=== PATIENT | female | born 1955 | race Caucasian/White ===

== ENCOUNTER → 2017-06-20 | Outpatient (CLI) | payer BC ==
--- NOTE | 2017-06-20 12:49 | BD ---
EXAMINATION TYPE: MG DEXA axial skeleton. DATE OF EXAM: 06/20/2017 COMPARISON: NONE CLINICAL HISTORY: N95.5 POSTMENOPAUSAL Height: 63 Weight: 189.2 FRAX RISK QUESTIONS: Alcohol (3 or more units per day): no Family History (Parent hip fracture): no Glucocorticoids (More than 3mos): no (Ex: prednisone, prednisolone, methylprednisolone, dexamethasone, and hydrocortisone). History of Fracture in Adulthood: no Secondary Osteoporosis: 1. Type 1 Diabetes: no 2. Hyperthyroidism: no 3. Menopause before 45: no 4. Malnutrition: no 5. Chronic liver disease: no Rheumatoid Arthritis: no Current Tobacco Use: no RISK FACTORS HISTORY OF: Hip Fracture (Right/Left): no Spine Fracture: no History of Wrist Fracture: yes right Surgery to Spine/Hip(right/left)/Wrist (right/left): no Family History of Osteoporosis: yes Active: yes Diet low in dairy products/other sources of calcium: no Postmenopausal woman: around age 51 Lost more than 2 inches in height since high school: no Frequent falls: no Poor Health: no Hyperparathyroidism: no Adrenal Insufficiency: no MEDICATIONS: asthma meds, singulair, vitamins, blood pressure meds Prednisone or other steroids: How Long: Thyroid Medications: synthroid How Lon years Osteoporosis Medications: evista How Lon years Additional Medications: Additional History: EXAM MEASUREMENTS: Bone mineral densitometry was performed using the [employer] System. Bone mineral density as measured about the Lumbar spine is: ----- L1-L4(G/cm2): 0.794 T Score Values are as follows: ----- L2: -4.2 ----- L3: -3.4 ----- L4: -2.5 ----- L1-L4: -3.2 Bone mineral density has: decreased -2.9 % since study of: 09.24.2013 Bone mineral density about the R hip (g/cm2): 0.719 Bone mineral density about the L hip (g/cm2): 0.733 T Score values are as follows: -----R Neck: -2.3 -----L Neck: -2.2 -----R Total: -2.0 -----L Total: -2.0 Bone mineral density has: decreased -4.3 % since study of: 09.24.2013 IMPRESSION: 1. Osteoporosis about the lumbar spine. 2. Osteopenia about the bilateral femora. NOTE: T-SCORE=SD OF THE YOUNG ADULT MEAN.
--- NOTE | 2017-06-22 07:16 | MM ---
Reason for exam: screening (asymptomatic). Last mammogram was performed 2 years and 5 months ago. History: Patient is postmenopausal. Physical Findings: A clinical breast exam by your physician is recommended on an annual basis and results should be correlated with mammographic findings. MG Screening Mammo w CAD Bilateral CC and MLO view(s) were taken. Prior study comparison: January 20, 2015, bilateral MG screening mammo w CAD. September 24, 2013, bilateral digital screening mammo w/CAD. August 21, 2012, bilateral digital screening mammo w/CAD. There are scattered fibroglandular densities. No suspicious abnormality. No significant changes when compared with prior studies. ASSESSMENT: Negative, BI-RAD 1 RECOMMENDATION: Routine screening mammogram of both breasts in 1 year.
== END | disposition home or self-care (01) ==
LOC: RADMAMWWP 11:45
PROVIDERS: ATTEND Family Medicine
DX: Z12.31 Encounter for screening mammogram for malignant neoplasm of breast (principal); M81.0 Age-related osteoporosis without current pathological fracture; M85.852 Other specified disorders of bone density and structure, left thigh; M85.851 Other specified disorders of bone density and structure, right thigh
CPT/HCPCS: 77067; 77080

== ENCOUNTER → 2019-11-20 | Outpatient (CLI) | payer BC | END | disposition home or self-care (01) | LOC: CPPFTMAIN 08:53 | PROVIDERS: ATTEND Internal Medicine Critical Care Medicine | DX: J45.909 Unspecified asthma, uncomplicated (principal); R94.2 Abnormal results of pulmonary function studies | CPT/HCPCS: 94060; 94726; 94729 ==

== ENCOUNTER → 2020-05-21 | Outpatient (CLI) | payer BC ==
--- NOTE | 2020-05-26 09:03 | BD ---
EXAMINATION TYPE: Axial Bone Density DATE OF EXAM: 05/21/2020 COMPARISON: DEXA June 20, 2017 CLINICAL HISTORY: Postmenopausal female. Height: 5 FT 3 IN Weight: 179 FRAX RISK QUESTIONS: Alcohol (3 or more units per day): NO Family History (Parent hip fracture): NO Glucocorticoids (More than 3mos): NO (Ex: prednisone, prednisolone, methylprednisolone, dexamethasone, and hydrocortisone). History of Fracture in Adulthood: NO Secondary Osteoporosis: 1. Type 1 Diabetes: NO 2. Hyperthyroidism: NO 3. Menopause before 45: NO 4. Malnutrition: NO 5. Chronic liver disease: NO Rheumatoid Arthritis: NO Current Tobacco Use: NO RISK FACTORS HISTORY OF: Family History of Osteoporosis: YES Active: YES Diet low in dairy products/other sources of calcium: NO Postmenopausal woman: AROUND AGE 51 Take estrogen and/or progesterone medications: NONE Lost more than 2 inches in height since high school: NO MEDICATIONS: Thyroid Medications: YES Which medication: L THYROXINE How Long: APPROX, 31 YEARS Additional Medications: SINGULAIR,INHALER, L THYROXINE, TRIAMTERENE, VIT D3, SULERA, PRO AIR NEED ED Additional History: EXAM MEASUREMENTS: Bone mineral densitometry was performed using the [employer] System. Bone mineral density as measured about the Lumbar spine is: ----- L1-L4(G/cm2): 0.832 T Score Values are as follows: ----- L2: -3.2 ----- L3: -3.5 ----- L4: -2.8 ----- L1-L4: -2.9 Bone mineral density has: INCREASED 1.5 % since study of: 2017 Bone mineral density about the R hip (g/cm2): 0.683 Bone mineral density about the L hip (g/cm2): 0.708 T Score values are as follows: -----R Neck: -2.6 -----L Neck: -2.4 -----R Total: -2.1 -----L Total: -2.1 Bone mineral density has: DECREASED -1.8 % since study of: 2018 IMPRESSION: Osteoporosis (T Score less than -2.5) remains present. There remains increased fracture risk and therapy is usually indicated based on age. Re-Screen 1-2 years. NOTE: T-SCORE=SD OF THE YOUNG ADULT MEAN.
--- NOTE | 2020-05-26 09:37 | MM ---
Reason for exam: screening (asymptomatic). Last mammogram was performed 2 years and 11 months ago. History: Patient is postmenopausal. Physical Findings: A clinical breast exam by your physician is recommended on an annual basis and results should be correlated with mammographic findings. MG Screening Mammo w CAD Bilateral CC and MLO view(s) were taken. Prior study comparison: June 20, 2017, bilateral MG screening mammo w CAD. January 20, 2015, bilateral MG screening mammo w CAD. There are scattered fibroglandular densities. Intramammary lymph nodes redemonstrated right posterior upper outer quadrant. No significant changes when compared with prior studies. ASSESSMENT: Negative, BI-RAD 1 RECOMMENDATION: Routine screening mammogram of both breasts in 1 year.
== END | disposition home or self-care (01) ==
LOC: RADMAMWWP 14:38
PROVIDERS: ATTEND Family Medicine
DX: Z12.31 Encounter for screening mammogram for malignant neoplasm of breast (principal); M81.0 Age-related osteoporosis without current pathological fracture
CPT/HCPCS: 77067; 77080

== ENCOUNTER → 2022-03-29 | Outpatient (CLI) | payer OTHER | END | disposition home or self-care (01) | LOC: LABWHC1 13:48 | PROVIDERS: ATTEND Family Medicine | DX: Z00.00 Encounter for general adult medical examination without abnormal findings (principal) | CPT/HCPCS: 93005 ==

== ENCOUNTER 2023-04-22 08:52 | Emergency (ER) | payer MEDICARE ==
[2023-04-22] MEDS ORDERED: KETOROLAC 15 MG/ML 1 ML VIAL IVP STA (09:08)
[2023-04-22] MEDS ORDERED: LIDOCAINE 5% PATCH TOPICAL ONE (09:08)
[2023-04-22] MEDS ORDERED: SODIUM CHLORIDE 0.9% 1,000 ML IV STA (09:09)
--- NOTE | 2023-04-22 09:22 | ED ---
Back Pain HPI - General Chief Complaint: Back Pain/Injury Stated Complaint: Back Pain Time Seen by Provider: 04/22/23 09:02 Source: patient, RN notes reviewed Mode of arrival: ambulatory Limitations: no limitations - History of Present Illness Initial Comments: This is a 67-year-old female who presents to the emergency department for back pain. States that she has had right mid back pain for the last week. This occasionally wraps around into the right mid to upper abdomen. Denies any injuries. States that she did have similar issues over this summer, however the cause was never determined. She has been having some constipation. Denies any fevers, chills, nausea, vomiting, or urinary changes. She is taking [id number] Advil with some relief in symptoms. Denies any loss of bowel/bladder control or saddle anesthesia. MD Complaint: back pain Onset/Timin -: week(s) - Related Data Previous Rx's Medication Instructions Recorded HYDROcodone/APAP 5-325MG [Polk 1 tab PO Q6HR PRN 3 Days #12 tab 04/22/23 5-325] Ketorolac [Toradol] 10 mg PO Q6HR PRN #15 tab 04/22/23 Lidocaine 5% Patch [Lidoderm 5% 1 patch TOPICAL DAILY PRN #30 patch 04/22/23 Patch] methocarbamoL [Robaxin-750] 1,500 mg PO TID PRN #30 tab 04/22/23 Allergies Allergy/AdvReac Type Severity Reaction Status Date / Time Sulfa (Sulfonamide Allergy Rash/Hives Verified 04/22/23 09:00 Antibiotics) Review of Systems ROS Statement: Those systems with pertinent positive or pertinent negative responses have been documented in the HPI. ROS Other: All systems not noted in ROS Statement are negative. Past Medical History Past Medical History: Asthma, Hypertension Additional Past Medical History / Comment(s): Diverticulosis, History of Any Multi-Drug Resistant Organisms: None Reported Past Surgical History: Tubal Ligation Past Psychological History: Unable to Obtain Smoking Status: Former smoker Past Alcohol Use History: None Reported Past Drug Use History: None Reported General Exam Limitations: no limitations General appearance: alert, in no apparent distress Head exam: Present: atraumatic, normocephalic, normal inspection Respiratory exam: Present: normal lung sounds bilaterally. Absent: respiratory distress, wheezes, rales, rhonchi, stridor Cardiovascular Exam: Present: regular rate, normal rhythm, normal heart sounds. Absent: systolic murmur, diastolic murmur, rubs, gallop, clicks GI/Abdominal exam: Present: soft, tenderness (Right mid abdomen), normal bowel sounds. Absent: distended Back exam: Absent: CVA tenderness (R), CVA tenderness (L) Neurological exam: Present: alert, oriented X3, CN II-XII intact Psychiatric exam: Present: normal affect, normal mood Skin exam: Present: warm, dry, intact, normal color. Absent: rash Course Vital Signs 04/22/23 04/22/23 04/22/23 08:56 10:36 12:01 Temperature 97.5 F L 97.9 F 98.7 F Pulse Rate 73 72 65 Respiratory 18 20 18 Rate Blood Pressure 193/88 169/91 160/90 O2 Sat by Pulse 97 100 100 Oximetry Medical Decision Making - Medical Decision Making This is a 67-year-old female who presents to the emergency department for back pain. Was pt. sent in by a medical professional or institution? @ -No Did you speak to anyone other than the patient for history? @ -No Did you review nursing and triage notes? @ -Yes, and I agree, it is accurate with regards to the patient's symptoms. Were old charts reviewed? @ -No Differential Diagnosis? @ -Differential Back Pain: Strain, zoster, cauda equina syndrome, epidural abscess, vertebral osteomyelitis, discitis, fracture, subluxation, disc herniation, DJD, spinal stenosis, dissection, AAA, pancreatitis, peptic ulcer disease, pyelonephritis, kidney stone, this is not meant to be an all-inclusive list. EKG interpreted by me (3pts min.)? @ -Not obtained X-rays interpreted by me (1pt min.)? @ -Not obtained CT interpreted by me (1pt min.)? @ -CT scan of the abdomen and pelvis obtained. My interpretation identifies wall thickening along the cecum. U/S interpreted by me (1pt. min.)? @ -Not obtained What testing was considered but not performed? (CT, X-rays, U/S, labs)? Why? @ -None What meds were considered but not given? Why? @ -None Did you discuss the management of the patient with other professionals? @ -No Did you reconcile home meds? @ -No Was smoking cessation discussed for >3mins.? @ -No Was critical care preformed (if so, how long)? @ -No Were there social determinants of health that impacted care today? How? (Homelessness, low income, unemployed, alcoholism, drug addiction, transportation, low edu. Level, literacy, decrease access to med. care, residential, rehab)? @ -No Was there de-escalation of care discussed even if they declined? (Discuss DNR or withdrawal of care, Hospice)? @ -No What co-morbidities impacted this encounter? (DM, HTN, Smoking, COPD, CAD, Cancer, CVA, Hep., AIDS, mental health diagnosis, sleep apnea, morbid obesity)? @ -None Was patient admitted / discharged? @ -Discharged. Lab work obtained and found to be unremarkable. Urinalysis neg ative for signs of infection. Computed tomography scan of the abdomen and pelvis obtained. This identified likely subacute endplate compression deformities along T11 and T12 that are new from 2015 but still age indeterminate. There is no retropulsion into the spinal canal. She was also found to have thickening along the jones of the posterior cecum and ascending colon thought to be related to liquid stool. Findings reviewed with the patient, in that symptoms are likely related to the compression fractures. Symptoms were well controlled in the emergency department. She was given prescriptions for Polk, lidocaine patches, Toradol, and Robaxin with dosing instructions reviewed. Information for orthopedic follow-up provided as well, she is instructed to contact them for a follow-up appointment and reevaluation. Undiagnosed new problem with uncertain prognosis? @ -None Drug Therapy requiring intensive monitoring for toxicity (Heparin, Nitro, Insulin, Cardizem)? @ -None Were any procedures done? @ -None Diagnosis/symptom? @ -T11 and T12 compression fractures Acute, or Chronic, or Acute on Chronic? @ -Acute Uncomplicated (without systemic symptoms) or Complicated (systemic symptoms)? @ -Uncomplicated Side effects of treatment? @ -None Exacerbation, Progression, or Severe Exacerbation] @ -Not applicable Poses a threat to life or bodily function? @ -This will depend on the severity of her pain Return precautions reviewed in depth, the patient is instructed to return to the emergency department with any new, worsening, or concerning symptoms. Patient verbalized understanding. This case was discussed in detail with the attending ED physician, Dr. Pena. Presentation, findings, and treatment plan discussed in detail as well. - Lab Data Result diagrams: 04/22/23 09:26 04/22/23 09: Lab Results 04/22/23 04/22/23 04/22/23 Range/Units 09:26 09: 09:26 WBC 8.1 (3.8-10.6) k/uL RBC 4.61 (3.80-5.40) m/uL Hgb 13.9 (11.4-16.0) gm/dL Hct 40.7 (34.0-46.0) % MCV 88.3 (80.0-100.0) fL MCH 30.2 (25.0-35.0) pg MCHC 34.2 (31.0-37.0) g/dL RDW 12.0 (11.5-15.5) % Plt Count 219 (150-450) k/uL MPV 8.3 Neutrophils % 63 % Lymphocytes % 24 % Monocytes % 6 % Eosinophils % 4 % Basophils % 1 % Neutrophils # 5.1 (1.3-7.7) k/uL Lymphocytes # 2.0 (1.0-4.8) k/uL Monocytes # 0.5 (0-1.0) k/uL Eosinophils # 0.3 (0-0.7) k/uL Basophils # 0.0 (0-0.2) k/uL Sodium 138 (137-145) mmol/L Potassium 4.0 (3.5-5.1) mmol/L Chloride 104 (98-107) mmol/L Carbon Dioxide 21 L (22-30) mmol/L Anion Gap 13 mmol/L BUN 19 H (7-17) mg/dL Creatinine 0.81 (0.52-1.04) mg/dL Est GFR (CKD-EPI)AfAm 88 (>60 ml/min/1.73 sqM) Est GFR (CKD-EPI)NonAf 76 (>60 ml/min/1.73 sqM) Glucose 95 (74-99) mg/dL Plasma Lactic Acid [place] (0.7-2.0) mmol/L Calcium 10.1 (8.4-10.2) mg/dL Total Bilirubin 0.6 (0.2-1.3) mg/dL AST 25 (14-36) U/L ALT 23 (4-34) U/L Alkaline Phosphatase 89 (38-126) U/L Total Protein 7.5 (6.3-8.2) g/dL Albumin 4.3 (3.5-5.0) g/dL Urine Color Colorless Urine Appearance Clear (Clear) Urine pH 6.0 (5.0-8.0) Ur Specific [place] 1.013 (1.001-1.035) Urine Protein Negative (Negative) Urine Glucose (UA) Negative (Negative) Urine Ketones Negative (Negative) Urine Blood Negative (Negative) Urine Nitrite Negative (Negative) Urine Bilirubin Negative (Negative) Urine Urobilinogen <2.0 (<2.0) mg/dL Ur Leukocyte Esterase Small H (Negative) Urine RBC 1 (0-5) /hpf Urine WBC 2 (0-5) /hpf Ur Squamous Epith Cells 1 (0-4) /hpf Urine Mucus Rare H (None) /hpf 04/22/23 Range/Units 09:26 WBC (3.8-10.6) k/uL RBC (3.80-5.40) m/uL Hgb (11.4-16.0) gm/dL Hct (34.0-46.0) % MCV (80.0-100.0) fL MCH (25.0-35.0) pg MCHC (31.0-37.0) g/dL RDW (11.5-15.5) % Plt Count (150-450) k/uL MPV Neutrophils % % Lymphocytes % % Monocytes % % Eosinophils % % Basophils % % Neutrophils # (1.3-7.7) k/uL Lymphocytes # (1.0-4.8) k/uL Monocytes # (0-1.0) k/uL Eosinophils # (0-0.7) k/uL Basophils # (0-0.2) k/uL Sodium (137-145) mmol/L Potassium (3.5-5.1) mmol/L Chloride (98-107) mmol/L Carbon Dioxide (22-30) mmol/L Anion Gap mmol/L BUN (7-17) mg/dL Creatinine (0.52-1.04) mg/dL Est GFR (CKD-EPI)AfAm (>60 ml/min/1.73 sqM) Est GFR (CKD-EPI)NonAf (>60 ml/min/1.73 sqM) Glucose (74-99) mg/dL Plasma Lactic Acid [place] 1.5 (0.7-2.0) mmol/L Calcium (8.4-10.2) mg/dL Total Bilirubin (0.2-1.3) mg/dL AST (14-36) U/L ALT (4-34) U/L Alkaline Phosphatase (38-126) U/L Total Protein (6.3-8.2) g/dL Albumin (3.5-5.0) g/dL Urine Color Urine Appearance (Clear) Urine pH (5.0-8.0) Ur Specific [place] (1.001-1.035) Urine Protein (Negative) Urine Glucose (UA) (Negative) Urine Ketones (Negative) Urine Blood (Negative) Urine Nitrite (Negative) Urine Bilirubin (Negative) Urine Urobilinogen (<2.0) mg/dL Ur Leukocyte Esterase (Negative) Urine RBC (0-5) /hpf Urine WBC (0-5) /hpf Ur Squamous Epith Cells (0-4) /hpf Urine Mucus (None) /hpf - Radiology Data Radiology results: report reviewed, image reviewed Disposition Clinical Impression: Compression fracture of T11 vertebra, T12 compression fracture Disposition: HOME SELF-CARE Instructions (If sedation given, give patient instructions): Vertebral Comp ression Fracture (ED) Additional Instructions: Return to the emergency department with any new, worsening, or concerning symptoms.Take the Toradol with Tylenol as needed for pain relief. If you choose to take the Toradol, do not take any other anti-inflammatories such as ibuprofen, take one or the other. You can take the Robaxin as 1-2 tablets 3-4 times daily. You can take the Polk up to every 6 hours as needed for pain relief. Be aware that both the Polk and Robaxin may make you drowsy. You can apply the lidocaine patches daily as well. Contact orthopedics as listed below, and let them know that you were seen in the emergency department and found to h ave fractures in your vertebrae. Follow up with your primary care provider in 1- 2 days. Prescriptions: Lidocaine 5% Patch [Lidoderm 5% Patch] 1 patch TOPICAL DAILY PRN #30 patch PRN Reason: Pain HYDROcodone/APAP 5-325MG [[place]k 5-325] 1 tab PO Q6HR PRN 3 Days #12 tab PRN Reason: Pain methocarbamoL [Robaxin-750] 1,500 mg PO TID PRN #30 tab PRN Reason: Pain Ketorolac [Toradol] 10 mg PO Q6HR PRN #15 tab PRN Reason: Pain Is patient prescribed a controlled substance at d/c from ED?: Yes When asked, does pt state using other controlled substances?: No If prescribed controlled substance>3 days was MAPS reviewed?: Prescribed <3 Days Referrals: Neena Ramírez MD [Primary Care Provider] - 1-2 days Bernardino Dietz MD [STAFF PHYSICIAN] - 1-2 days
[2023-04-22 09:47] LABS: Basophils % (A) 1 %; Eosinophils # (A) 0.3 k/uL (0-0.7); Eosinophils % (A) 4 %; HCT 40.7 % (34.0-46.0); HGB 13.9 gm/dL (11.4-16.0); Lymphocytes % (A) 24 %; MCH 30.2 pg (25.0-35.0); MCHC 34.2 g/dL (31.0-37.0); MCV 88.3 fL (80.0-100.0); Mean Platelet Volume 8.3; Monocytes # (A) 0.5 k/uL (0-1.0); Monocytes % (A) 6 %; Neutrophils # (A) 5.1 k/uL (1.3-7.7); Neutrophils % (A) 63 %; Platelet Count 219 k/uL (150-450); RBC 4.61 m/uL (3.80-5.40); WBC 8.1 k/uL (3.8-10.6)
[2023-04-22 09:58] LABS: Appearance,Urine Clear (Clear); Bilirubin,Urine Negative (Negative); Blood,Urine Negative (Negative); Color,Urine Colorless; Glucose,Urine (UA) Negative (Negative); Ketones,Urine Negative (Negative); Leukocyte Esterase,Urine Small (Negative); Mucus,Urine Rare /hpf; Nitrite,Urine Negative (Negative); Protein,Urine Negative (Negative); RBC,Urine 1 /hpf (0-5); Specific Gravity,Urine 1.013 (1.001-1.035); Squamous Epithelial Cell,Urine 1 /hpf (0-4); Urobilinogen,Urine <2.0 mg/dL (<2.0); WBC,Urine 2 /hpf (0-5)
[2023-04-22 09:59] LABS: ALT 23 U/L (4-34); AST 25 U/L (14-36); African American GFR (CKD) 88 (>60 ml/min/1.73 sqM); Albumin 4.3 g/dL (3.5-5.0); Alkaline Phosphatase 89 U/L (38-126); Anion Gap 13 mmol/L; Blood Urea Nitrogen 19 mg/dL (7-17); Calcium 10.1 mg/dL (8.4-10.2); Carbon Dioxide 21 mmol/L (22-30); Chloride 104 mmol/L (98-107); Glucose 95 mg/dL (74-99); Non-African American GFR(CKD) 76 (>60 ml/min/1.73 sqM); Sodium 138 mmol/L (137-145); Total Bilirubin 0.6 mg/dL (0.2-1.3); Total Protein 7.5 g/dL (6.3-8.2)
[2023-04-22] MEDS ORDERED: HYDROmorphone 0.5 MG/0.5 ML SYRINGE IVP STA (10:28)
--- NOTE | 2023-04-22 11:12 | CT ---
EXAMINATION TYPE: CT abdomen pelvis w con DATE OF EXAM: 04/22/2023 COMPARISON: 10/31/2014 HISTORY: 67-year-old female with right mid abdominal pain and right mid back pain. TECHNIQUE: Contiguous axial scanning of the abdomen and pelvis following administration of 100 ml Iso jem 300 IV contrast. Delayed images through the kidneys and coronal/sagittal reconstructions perform ed. CT DLP: 1108.7 mGycm Automated exposure control for dose reduction was used. FINDINGS: Heart normal size without pericardial effusion. Strandy atelectasis/scarring in the lower lungs. No p leural effusion. Small to moderate-sized hiatal hernia. Low centrally located left hepatic lobe cyst measuring 2.3 cm. No other focal liver lesion or biliary ductal dilatation. Portal venous system is patent. There is a small low-density nodule of the right adrenal gland measuring 1.2 cm versus 8 mm, previous ly. Likely small adrenal adenoma. Left adrenal gland, pancreas, and spleen within normal limits. 8 mm small cortical cysts anterior right kidney. Otherwise, kidneys unremarkable. Satisfactory uptake and excretion of contrast from both kidneys. No dilated small bowel, free fluid, or free air. No mesenteric or retroperitoneal lymphadenopathy. Moderate stool burden. Favor dependent intraluminal bowel content posterior wall of the cecum, axial image 50 and along portions of the ascending colon, axial image 40. Moderate overall spinal wording. Left-sided colonic diverticulosis, extensive in the sigmoid colon. No pericolonic inflammatory change seen. Normal appendix. Bladder is urine distended. Uterus is anteverted. Both ovaries are visualized. Small pelvic fluid was . No abnormal fluid collection in the pelvis or pelvic lymphadenopathy. Bones: Superior endplate compression deformity T11 and superior/inferior endplate compression deformities of T12 are both new from 2014 but still age indeterminate. Possibly subacute given mild paravertebral s oft tissue thickening at this level. Clinically correlate. No significant retropulsion into the spina l canal. IMPRESSION: 1. ENDPLATE COMPRESSION DEFORMITIES OF T11 AND T12 ARE NEW FROM 2014 BUT STILL age indeterminate. Pos sibly subacute given mild paravertebral soft tissue thickening at these levels. Clinical correlation. No retropulsion into the spinal canal. 2. Thickening along the posterior jones of the cecum and ascending colon favored to be on the basis o f dependent liquid stool rather than abnormal wall thickening. Correlate with direct visualization if routine screening colonoscopy is not being performed. 3. Left sided colonic diverticulosis without acute diverticulitis. 4. Small to moderate-sized hiatal hernia and a benign 1.2 cm right adrenal adenoma.
[2023-04-22 12:20] VITALS: BP 160/90; PULSE 65; RESP 18; TEMP 98.7
== END 2023-04-22 12:04 | disposition home or self-care (01) ==
LOC: EC 08:52
DX: M48.54XA Collapsed vertebra, not elsewhere classified, thoracic region, initial encounter for fracture (principal); K63.89 Other specified diseases of intestine; I10 Essential (primary) hypertension; J45.909 Unspecified asthma, uncomplicated; Z87.891 Personal history of nicotine dependence; Z88.2 Allergy status to sulfonamides
CPT/HCPCS: 99284; 96374; 96375; 96361; 36415; 80053; 83605; 85025; 81001; 74177; J1885; J1170; Q9967

== ENCOUNTER → 2023-06-02 | Outpatient (CLI) | payer MEDICARE ==
--- NOTE | 2023-06-02 23:49 | BD ---
EXAMINATION TYPE: Axial Bone Density DATE OF EXAM: 06/02/2023 CLINICAL HISTORY: 67 years old Female. ICD-10 CODE: Z78.0 ASYMPTOMATIC MENOPAUSAL STA Height: 60 Weight: 164.8 FRAX RISK QUESTIONS: Alcohol (3 or more units per day): no Family History (Parent hip fracture): no Glucocorticoids (More than 3mos): no History of Fracture in Adulthood: T11 and T12 Secondary Osteoporosis: 1. Type 1 Diabetes: no 2. Hyperthyroidism: Previously 3. Menopause before 45: no 4. Malnutrition: no 5. Chronic liver disease: no Rheumatoid Arthritis: no Current Tobacco Use: no RISK FACTORS HISTORY OF: Hip Fracture (Right/Left): no Spine Fracture: T11 and T12 When: History of Wrist Fracture: Lt Wrist When: Child Surgery to Spine/Hip(right/left)/Wrist (right/left): no Family History of Osteoporosis: Mother Active: no Diet low in dairy products/other sources of calcium: no Postmenopausal woman: yes Take estrogen and/or progesterone medications: no Lost more than 2 inches in height since high school: yes Frequent falls: no Poor Health: no` Hyperparathyroidism: no Adrenal Insufficiency: no MEDICATIONS: Prednisone or other steroids: no Thyroid Medications: Levothyroxine How Long: past 20 years Osteoporosis Medications: no Additional Medications: BP Med, Reflux Meds, Vit D, Fish Oil, Inhaler Additional History: EXAM MEASUREMENTS: Bone mineral densitometry was performed using the [employer] System. Bone mineral density as measured about the Lumbar spine is: ----- L1-L4(G/cm2): 0.790 T Score Values are as follows: ----- L1: -2.6 ----- L2: -4.4 ----- L3: -3.1 ----- L4: -3.1 ----- L1-L4: -3.2 Z Score Values are as follows: ----- L1: -1.3 ----- L2: -3.2 ----- L3: -1.8 ----- L4: -1.8 ----- L1-L4: -2.0 Bone mineral density has: decreased -5.0 % since study of: 05/21/2020 Bone mineral density about the R hip (g/cm2): 0.710 Bone mineral density about the L hip (g/cm2): 0.857 T Score values are as follows: -----R Neck: -2.4 -----L Neck: -1.3 -----R Total: -2.4 -----L Total: -1.2 Z Score values are as follows: -----R Neck: -1.1 -----L Neck: 0.0 -----R Total: -13 -----L Total: -0.2 Bone mineral density has: INCREASED 5.4 % since study of: 05/21/2020 FRAX%s: The graph provided illustrates a 12.3% chance for a major osteoporotic fx and a 2.5% chance f or the hips probability for fx in 10 years time. IMPRESSION: Osteopenia (T Score between -2.5 and -1). There is slightly increased risk of fracture and the patient may be considered for treatment. Re-Screen 2-5 years. NOTE: T-SCORE=SD OF THE YOUNG ADULT MEAN.
--- NOTE | 2023-06-03 19:32 | MM ---
Reason for Exam: Screening (asymptomatic). Last mammogram was performed 3 year(s) and 1 month(s) ago. Patient History: Menarche at age 17. First Full-Term at age 21. Postmenopausal. Risk Values: Eugenia 5 year model risk: 1.4%. NCI Lifetime model risk: 4.9%. Prior Study Comparison: 01/20/2015 Bilateral Screening Mammogram, [facility]. 06/20/2017 Bilateral Screening Mammogram, [facility]. 05/21/2020 Bilateral Screening Mammogram, [facility]. Tissue Density: There are scattered fibroglandular densities. Findings: Analyzed By CAD. Pattern appears symmetrical and stable. Chronic nodularity is within the right breast. No significant interval changes are evident. No suspicious groups of microcalcifications, spiculated or lobular masses, architectural distortion or other secondary signs of malignancy are mammographically apparent. Overall Assessment: Benign, BI-RAD 2 Management: Screening Mammogram of both breasts in 1 year. A negative mammogram report should not preclude additional follow up of suspicious palpable abnormalities. Patient should continue monthly self breast exam. A clinical breast exam by your physician is recommended on an annual basis and results should be correlated with mammographic findings. Electronically signed and approved by: Daniel Tanner D.O. Radiologis
== END | disposition home or self-care (01) ==
LOC: RADMAMWWP 13:10
PROVIDERS: ATTEND Family Medicine
DX: Z12.31 Encounter for screening mammogram for malignant neoplasm of breast (principal); M81.0 Age-related osteoporosis without current pathological fracture; M85.89 Other specified disorders of bone density and structure, multiple sites; Z78.0 Asymptomatic menopausal state
CPT/HCPCS: 77067; 77080

== ENCOUNTER → 2024-09-18 | Outpatient (CLI) | payer MEDICARE ==
--- NOTE | 2024-09-18 15:08 | MM ---
Reason for Exam: Screening (asymptomatic). Last mammogram was performed 1 year(s) and 3 month(s) ago. Patient History: Menarche at age 17. First Full-Term at age 21. Postmenopausal. Risk Values: Eugenia 5 year model risk: 1.4%. NCI Lifetime model risk: 4.8%. Prior Study Comparison: 06/20/2017 Bilateral Screening Mammogram, [facility]. 05/21/2020 Bilateral Screening Mammogram, [facility]. 06/02/2023 Bilateral MG screening mammo w CAD, [facility]. Tissue Density: The breasts are almost entirely fatty. Findings: Analyzed By CAD. There is no suspicious group of microcalcifications or new suspicious mass in either breast. Overall Assessment: Negative, BI-RAD 1 Management: Screening Mammogram of both breasts in 1 year. . Patient should continue monthly self-breast exams. A clinical breast exam by your physician is recommended on an annual basis. This exam should not preclude additional follow-up of suspicious palpable abnormalities. Note on Eugenia scores and lifetime risk: 1. A Eugenia score greater than 3% is considered moderate risk. If this is the case, consider specialist referral to assess eligibility for a risk reducing agent. 2. If overall lifetime risk for the development of breast cancer is 20% or higher, the patient may qualify for future screening with alternating mammogram and breast MRI. [facility], , 09/18/2024 3:05 PM. Electronically signed and approved by: Doroteo Navarro M.D. Radi[facility]
== END | disposition home or self-care (01) ==
LOC: RADMAMWWP 14:46
PROVIDERS: ATTEND Family Medicine
DX: Z12.31 Encounter for screening mammogram for malignant neoplasm of breast (principal); R92.313 Mammographic fatty tissue density, bilateral breasts; Z78.0 Asymptomatic menopausal state
CPT/HCPCS: 77063; 77067